=== PATIENT | female | born 1980 | race Caucasian/White ===

== ENCOUNTER 2017-12-29 02:43 | Emergency (ER) | payer OTHER, SELFPAY ==
[2017-12-29] MEDS ORDERED: Adacel (T-DAP) 0.5 ML VIAL ONE (03:21)
== END 2017-12-29 03:47 | disposition home or self-care (01) ==
LOC: ERS 02:43
DX: S01.111A Laceration without foreign body of right eyelid and periocular area, initial encounter (principal); G40.909 Epilepsy, unspecified, not intractable, without status epilepticus; F17.210 Nicotine dependence, cigarettes, uncomplicated; Z23 Encounter for immunization; W22.8XXA Striking against or struck by other objects, initial encounter
CPT/HCPCS: 12011; 90471; 90715